=== PATIENT | female | born 1960 | race Hispanic/Latino ===

== ENCOUNTER 2018-10-03 15:46 | Emergency (ER) | payer OTHER ==
[~2018-10-03] VITALS: Ht 154.9 cm; Wt 63.5 kg
[2018-10-03] MEDS ORDERED: FAMOTIDINE 20 MG/2 ML VIAL IV STA (16:43)
[2018-10-03] MEDS ORDERED: DIPHENHYDRAMINE HCL INJ 50 MG/ML VIAL IV ONE (16:45)
--- NOTE | 2018-10-03 19:51 | Diagnostic Imaging Report ---
EXAM: CT Abdomen and Pelvis WITH contrast INDICATION: Abdominal pain. ^[id number] ^[id number] COMPARISON: None. TECHNIQUE: Abdomen and pelvis were scanned utilizing a multidetector helical scanner from the lung base to the pubic symphysis after administration of IV contrast. Coronal and sagittal reformations were obtained. Dose modulation, iterative reconstruction, and/or weight based adjustment of the mA/kV was utilized to reduce the radiation dose to as low as reasonably achievable. Routine protocol was performed. Scan was performed when during portal venous phase. IV CONTRAST: 100 mL of Isovue-370 ORAL CONTRAST: None. COMPLICATIONS: None RADIATION DOSE: Total DLP: 622.57 mGy*cm Estimated effective dose: (DLP x 0.015 x size factor) mSv CTDIvol has been reviewed. It is below the limits set by the Radiation Protocol Committee (RPC). FINDINGS: LINES and TUBES: None. LOWER THORAX: 5 mm left base nodule. Otherwise, unremarkable. HEPATOBILIARY: No focal hepatic lesions. Mild common bile duct dilatation, likely due to reservoir effect. GALLBLADDER: Surgically absent. SPLEEN: No splenomegaly. PANCREAS: No focal masses or ductal dilatation. ADRENALS: No adrenal nodules KIDNEYS/URETERS: Kidneys enhance symmetrically. No hydronephrosis. No cystic or solid mass lesions. No stones. GI TRACT: No abnormal distention or evidence of bowel obstruction. Mild lower rectal wall thickening. There are scattered diverticula within the colon without evidence of diverticulitis. Appendix is normal. 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 There are densities with streak artifacts, in the cervical area. Mild pelvic sidewall fat stranding. LYMPH NODES: No lymphadenopathy. VESSELS: Unremarkable. PERITONEUM / RETROPERITONEUM: No free air or fluid. BONES: Grade 1 anterolisthesis of L5 in relation to S1. No acute osseous abnormality. SOFT TISSUES: Unremarkable. IMPRESSION: 1. Uterus is markedly heterogeneous and probably myomatous. There are metallic densities with streak artifacts within cervical area. Please correlate with [employer] history. There is also mild pelvic fat stranding and low rectal wall thickening. If patient has history of pelvic radiation, these could be post radiation changes. Otherwise mild proctitis cannot be excluded. 2. 5 mm left base lung nodule. Without risk factors, no follow-up is necessary. With risk factors, follow-up with low-dose chest CT in one year is optional. Signed by: Dr. Edy Richmond MD on 10/03/2018 7:48 PM
== END 2018-10-03 20:34 | disposition home or self-care (01) ==
LOC: FSED 15:46
DX: K62.5 Hemorrhage of anus and rectum (principal); R10.9 Unspecified abdominal pain; R19.7 Diarrhea, unspecified; I10 Essential (primary) hypertension; E78.5 Hyperlipidemia, unspecified; Z85.41 Personal history of malignant neoplasm of cervix uteri
CPT/HCPCS: 74177; 80053; 81003; 85025; 99283; J1200

== ENCOUNTER 2021-10-13 09:14 | Emergency (ER) | payer OTHER ==
[~2021-10-13] VITALS: Ht 149.9 cm; Wt 67.7 kg
[2021-10-13] MEDS ORDERED: PRAVASTATIN SOD20 MG (09:53)
[2021-10-13] MEDS ORDERED: XYZAL5 MG (09:53)
[2021-10-13] MEDS ORDERED: LEVOTHYROXINE100 MC2 (09:53)
[2021-10-13] MEDS ORDERED: AMLODIPINE BESY10 MG PO (09:53)
[2021-10-13] MEDS ORDERED: ANUSOL-HC25 MG RC (10:51)
== END 2021-10-13 11:00 | disposition home or self-care (01) ==
LOC: FSED 09:53
DX: K62.5 Hemorrhage of anus and rectum (principal); I10 Essential (primary) hypertension; E78.5 Hyperlipidemia, unspecified; E03.9 Hypothyroidism, unspecified; Z85.41 Personal history of malignant neoplasm of cervix uteri
CPT/HCPCS: 80053; 81003; 85025; 99283